=== PATIENT | male | born 1960 | race Caucasian/White ===

== ENCOUNTER 2017-01-03 03:25 | Observation (INO) | payer MEDICAID, OTHER ==
[2017-01-03 03:54] LABS: % IMMATURE GRANULYOCYTES 0.3 % (0.0-1.1); ABSOLUTE IMMATURE GRANULOCYTES 0.01 10^3/uL (0.00-0.10); ADD DIFF? NO; ADD MORPH? NO; ADD SCAN? NO; ATYPICAL LYMPHOCYTE FLAG 40 (0-99); FRAGMENT RBC FLAG 0 (0-99); HEMATOCRIT 26.4 % (40.0-51.0); HEMOGLOBIN 8.3 g/dL (13.7-17.5); LEFT SHIFT FLG 0 (0-99); LIPEMIA HEMOLYSIS FLAG 80 (0-99); MEAN CELL HEMOGLOBIN 26.6 pg (27.9-34.1); MEAN CELL HEMOGLOBIN CONCENTR. 31.4 g/dL (32.4-36.7); MEAN CELL VOLUME 84.6 fL (81.5-99.8); PLATELET CLUMPS FLAG 20 (0-99); PLATELET COUNT 104 10^3/uL (150-400); RED BLOOD CELL COUNT 3.12 10^6/uL (4.40-6.38); RED CELL DISTRIBUTION WIDTH 16.4 % (11.5-15.2)
[2017-01-03 03:57] LABS: INR 1.37 (0.83-1.16); PROTIME(PATIENT) 16.9 SEC (12.0-15.0)
--- NOTE | 2017-01-03 04:00 | EDPHY ---
H & P Stated Complaint: GIB Time Seen by Provider: 01/03/17 03:29 HPI/ROS: Chief Complaint: GI bleed HPI: 56-year-old male with a history of end-stage liver disease, cirrhosis and varices to bleed status post a tips procedure last month. Patient has had an episode of lower GI bleeding this morning. Patient states he had a large bowel movement that consisted of mostly blood at his residence. He is currently staying at [facility]. Patient states he has had similar episodes in the past which has led to his prior workups. Denies any vomiting. No dark black stools. No fainting. No chest pain shortness of breath. No abdominal pain. Does not have a history of hemorrhoids. [facility] for [facility]. ROS: 10 point Review of Systems is negative except as noted in the HPI. PMH: Type 2 diabetes, cirrhosis, gastric and esophageal varices, status post tips procedure, alcoholic liver disease Medications: Lasix 20 mg once a day Lisinopril 5 mg once a day Multi vitamin once a day Risperdal 0.5 mg once a day Spironolactone 50 mg once a day Metformin 500 mg twice a day Pantoprazole 40 mg twice a day propranolol 10 mg twice a day Lactulose 20 g 3 times a day Baclofen 5 mg three times daily p.r.n. Flexeril 5 mg three times daily p.r.n. Allergies: No known drug allergies Social History: No smoking, strong history of alcohol abuse, no recreational drug use Family History: non-contributory Physical Exam: Gen: Awake, Alert, No Distress HEENT: Nose: no rhinorrhea Eyes: PERRLA, EOMI Mouth: Moist mucosa Neck: Supple, no JVD Chest: nontender, lungs clear to auscultation Heart: S1, S2 normal, no murmur Abd: Soft, non-tender, no guarding Rectal: Adam blood Back: no CVA tenderness, no midline tenderness Ext: no edema, non-tender Skin: no rash Neuro: CN II-XII intact, Sensation grossly intact, Strength 5/5 in bilateral upper and lower extremities - Personal History Current Tetanus Diphtheria and Acellular Pertussis (TDAP): Unsure - Medical/Surgical History Hx Asthma: No Hx Chronic Respiratory Disease: No Hx Diabetes: Yes Hx Cardiac Disease: No Hx Renal Disease: Yes Hx Cirrhosis: Yes Hx Alcoholism: Yes Hx HIV/AIDS: No Hx Splenectomy or Spleen Trauma: No Other PMH: Past medical history: End-stage liver disease, HTN, AMS, depression - Social History Smoking Status: Former smoker Constitutional: Initial Vital Signs Temperature (C) 36.6 C 01/03/17 03:33 Heart Rate 64 01/03/17 03:33 Respiratory Rate 16 01/03/17 03:33 Blood Pressure 121/71 H 01/03/17 03:33 O2 Sat (%) 96 01/03/17 03:33 O2 Delivery Mode Room Air Allergies/Adverse Reactions: No Known Allergies Allergy (Unverified 01/03/17 03:29) Home Medications: Medication Instructions Recorded Baclofen 01/03/17 Flexeril 01/03/17 LACTULOSE 01/03/17 Lasix 01/03/17 Lisinopril 01/03/17 Magnesium 01/03/17 Metformin HCl 01/03/17 Pantoprazole Sodium 01/03/17 Propranolol HCl 01/03/17 Risperdal 01/03/17 Spironolactone 01/03/17 Medical Decision Making ED Course/Re-evaluation: Patient had a large bowel motion which consisted of adam blood. Patient's hemodynamics are normal. His H&H are low. I am uncertain if this is baseline. I review some of his records from [facility]. Patient had a varicocele bleed last month and is status post a TIPS procedure. He is certainly not a low risk patient. Given his H&H in his adam blood he will P requiring admission for further evaluation. I have paged the hospitalist. Case discussed with Dr. Shetty. He will admit the patient to [facility]. He would like 1 unit packed red blood cells transfused now. Would also like. Patient to start bowel now. - Data Points Laboratory Results: Laboratory Results 01/03/17 03:40 01/03/17 03:40 01/03/17 01/03/17 01/03/17 03:40 03:40 03:40 WBC RBC Hgb Hct MCV MCH MCHC RDW Plt Count MPV Neut % (Auto) Lymph % (Auto) [place] % (Auto) Eos % (Auto) Baso % (Auto) Nucleat RBC Rel Count Absolute Neuts (auto) Absolute Lymphs (auto) Absolute Monos (auto) Absolute Eos (auto) Absolute Basos (auto) Absolute Nucleated RBC Immature Gran % Immature Gran # PT 16.9 SEC H SEC (12.0-15.0) INR 1.37 H (0.83-1.16) APTT 32.0 SEC SEC (23.0-38.0) Sodium 136 mEq/L mEq/L (134-144) Potassium 4.9 mEq/L mEq/L (3.5-5.2) Chloride 105 mEq/L mEq/L (97-110) Carbon Dioxide 21 mEq/l L mEq/l (22-31) Anion Gap 10 mEq/L mEq/L (8-16) BUN 20 mg/dL mg/dL (7-23) Creatinine 1.0 mg/dL mg/dL (0.7-1.3) Estimated GFR > 60 Glucose 329 mg/dL H mg/dL (70-100) Calcium 9.2 mg/dL mg/dL (8.5-10.4) Total Bilirubin 0.9 mg/dL mg/dL (0.1-1.4) Conjugated Bilirubin 0.6 mg/dL H mg/dL (0.0-0.5) Unconjugated Bilirubin 0.3 mg/dL mg/dL (0.0-1.1) AST 106 IU/L H IU/L (17-59) ALT 69 IU/L IU/L (21-72) Alkaline Phosphatase 141 IU/L H IU/L (38-126) Total Protein 6.6 g/dL g/dL (6.3-8.2) Albumin 3.2 g/dL L g/dL (3.5-5.0) Lipase 493.0 IU/L H IU/L (23-300) Patient ABO/Rh Pending Antibody Screen Pending 01/03/17 03:40 WBC 3.45 10^3/uL L 10^3/uL (3.80-9.50) RBC 3.12 10^6/uL L 10^6/uL (4.40-6.38) Hgb 8.3 g/dL L g/dL (13.7-17.5) Hct 26.4 % L % (40.0-51.0) MCV 84.6 fL fL (81.5-99.8) MCH 26.6 pg L pg (27.9-34.1) MCHC 31.4 g/dL L g/dL (32.4-36.7) RDW 16.4 % H % (11.5-15.2) Plt Count 104 10^3/uL L 10^3/uL (150-400) MPV 12.0 fL H fL (8.7-11.7) Neut % (Auto) 53.7 % % (39.3-74.2) Lymph % (Auto) 24.3 % % (15.0-45.0) [place] % (Auto) 12.2 % % (4.5-13.0) Eos % (Auto) 8.1 % H % (0.6-7.6) Baso % (Auto) 1.4 % % (0.3-1.7) Nucleat RBC Rel Count 0.0 % % (0.0-0.2) Absolute Neuts (auto) 1.85 10^3/uL 10^3/uL (1.70-6.50) Absolute Lymphs (auto) 0.84 10^3/uL L 10^3/uL (1.00-3.00) Absolute Monos (auto) 0.42 10^3/uL 10^3/uL (0.30-0.80) Absolute Eos (auto) 0.28 10^3/uL 10^3/uL (0.03-0.40) Absolute Basos (auto) 0.05 10^3/uL 10^3/uL (0.02-0.10) Absolute Nucleated RBC 0.00 10^3/uL 10^3/uL (0-0.01) Immature Gran % 0.3 % % (0.0-1.1) Immature Gran # 0.01 10^3/uL 10^3/uL (0.00-0.10) PT INR APTT Sodium Potassium Chloride Carbon Dioxide Anion Gap BUN Creatinine Estimated GFR Glucose Calcium Total Bilirubin Conjugated Bilirubin Unconjugated Bilirubin AST ALT Alkaline Phosphatase Total Protein Albumin Lipase Patient ABO/Rh Antibody Screen Departure - Departure Disposition: [facility] Inpatient Acute Clinical Impression: Lower GI bleed Condition: Fair Referrals: ANIRUDH HYDE [Primary Care Provider] - As per Instructions
[2017-01-03 04:01] LABS: ALANINE AMINOTRANSFERASE 69 IU/L (21-72); ALBUMIN 3.2 g/dL (3.5-5.0); ALKALINE PHOSPHATASE 141 IU/L (38-126); ANION GAP 10 mEq/L (8-16); ASPARTATE AMINOTRANSFERASE 106 IU/L (17-59); BILIRUBIN,TOTAL 0.9 mg/dL (0.1-1.4); BILIRUBIN-CONJUGATED 0.6 mg/dL (0.0-0.5); BILIRUBIN-UNCONJUGATED 0.3 mg/dL (0.0-1.1); CALCIUM 9.2 mg/dL (8.5-10.4); CARBON DIOXIDE 21 mEq/l (22-31); CHLORIDE 105 mEq/L (97-110); GLOMERULAR FILTRATION RATE > 60; GLUCOSE 329 mg/dL (70-100); POTASSIUM 4.9 mEq/L (3.5-5.2); SODIUM 136 mEq/L (134-144); TOTAL PROTEIN 6.6 g/dL (6.3-8.2)
[2017-01-03] MEDS ORDERED: GOLYTELY 4000 ML BTL PO ONE ×2 (04:25→18:00)
[2017-01-03] MEDS ORDERED: ONDANSETRON DISINTEGRATING 4 MG TAB PO PRN (05:17)
[2017-01-03] MEDS ORDERED: ONDANSETRON 4 MG/2 ML VIAL IVP PRN (05:17)
--- NOTE | 2017-01-03 05:27 | PDGENHP ---
History and Physical - Chief Complaint acute hematochezia - History of Present Illness PCP: [facility] HPI: 56-year-old male presenting with acute hematochezia characterized as bright red blood per rectum with onset of symptoms on the night of this presentation (around 1:30 a.m.) with a duration of once and no reported melena. The symptoms were preceded by some associated upper abdominal discomfort interpreted as indigestion, at approximately 9:00 p.m. on the evening of presentation. The patient reports that he has not been having any recent bloody bowel movements. He has been chronically struggling with diarrhea, as his lactulose dosage has been fluctuating and he has had numerous hospitalizations up at [facility] where dosages have been adjusted. He denies any recent alcohol intake. He denies any overt left-sided abdominal pain. History Information - Allergies/Home Medication List Allergies/Adverse Reactions: No Known Allergies Allergy (Unverified 01/03/17 03:29) Home Medications: Baclofen 01/03/17 [Last Taken Unknown] Flexeril 01/03/17 [Last Taken Unknown] LACTULOSE 01/03/17 [Last Taken Unknown] Lasix 01/03/17 [Last Taken Unknown] Lisinopril 01/03/17 [Last Taken Unknown] Magnesium 01/03/17 [Last Taken Unknown] Metformin HCl 01/03/17 [Last Taken Unknown] Pantoprazole Sodium 01/03/17 [Last Taken Unknown] Propranolol HCl 01/03/17 [Last Taken Unknown] Risperdal 01/03/17 [Last Taken Unknown] Spironolactone 01/03/17 [Last Taken Unknown] I have personally reviewed and updated: family history, medical history, social history, surgical history - Past Medical History diabetes type 2 Additional medical history: Alcoholic liver disease and cirrhosis with varices. Diverticulitis status post partial colectomy. C difficile colitis, recurrent , last episode July 2016 - Surgical History Additional surgical history: TIPS procedure approximately 1 month ago. Partial colectomy. Most recent EGD and colonoscopy in September of 2016 at [facility] - Family History Additional family history: no family history of colon cancer - Social History Smoking Status: Former smoker Alcohol Use: Occasionally (when he does drink, he binges, most recent was approximately 1 month ago) Drug Use: None Additional social history: currently residing at [facility] Review of Systems ROS: 10pt was reviewed & negative except for what was stated in HPI & below Gastrointestinal: Reports: rectal bleeding, other ( indigestion) Physical Exam Temp Pulse Resp BP Pulse Ox 36.7 C 73 16 106/59 L 97 01/03/17 05:18 01/03/17 05:18 01/03/17 05:18 01/03/17 05:18 01/03/17 05:18 Constitutional: no apparent distress, appears nourished, not in pain Eyes: PERRL, anicteric sclera, EOMI Ears, Nose, Mouth, Throat: moist mucous membranes, hearing normal, ears appear normal, no oral mucosal ulcers Cardiovascular: systolic murmur ( 106 sternum), No irregularly irregular, No tachycardia, No edema Respiratory: no respiratory distress, no rales or rhonchi, clear to auscultation Gastrointestinal: normoactive bowel sounds, soft, non-tender abdomen, no palpable masses, No hepatosplenomegally, No guarding, No distension Skin: warm, other ( non jaundice) Neurologic: AAOx3, other ( no tremulousness), No facial droop Psychiatric: interacting appropriately, not anxious, not encephalopathic, thought process linear Lab Data & Imaging Review 01/03/17 03:40 01/03/17 03:40 WBC 3.45 10^3/uL (3.80-9.50) L 01/03/17 03:40 RBC 3.12 10^6/uL (4.40-6.38) L 01/03/17 03:40 Hgb 8.3 g/dL (13.7-17.5) L 01/03/17 03:40 Hct 26.4 % (40.0-51.0) L 01/03/17 03:40 MCV 84.6 fL (81.5-99.8) 01/03/17 03:40 MCH 26.6 pg (27.9-34.1) L 01/03/17 03:40 MCHC 31.4 g/dL (32.4-36.7) L 01/03/17 03:40 RDW 16.4 % (11.5-15.2) H 01/03/17 03:40 Plt Count 104 10^3/uL (150-400) L 01/03/17 03:40 MPV 12.0 fL (8.7-11.7) H 01/03/17 03:40 Neut % (Auto) 53.7 % (39.3-74.2) 01/03/17 03:40 Lymph % (Auto) 24.3 % (15.0-45.0) 01/03/17 03:40 [place] % (Auto) 12.2 % (4.5-13.0) 01/03/17 03:40 Eos % (Auto) 8.1 % (0.6-7.6) H 01/03/17 03:40 Baso % (Auto) 1.4 % (0.3-1.7) 01/03/17 03:40 Nucleat RBC Rel Count 0.0 % (0.0-0.2) 01/03/17 03:40 Absolute Neuts (auto) 1.85 10^3/uL (1.70-6.50) 01/03/17 03:40 Absolute Lymphs (auto) 0.84 10^3/uL (1.00-3.00) L 01/03/17 03:40 Absolute Monos (auto) 0.42 10^3/uL (0.30-0.80) 01/03/17 03:40 Absolute Eos (auto) 0.28 10^3/uL (0.03-0.40) 01/03/17 03:40 Absolute Basos (auto) 0.05 10^3/uL (0.02-0.10) 01/03/17 03:40 Absolute Nucleated RBC 0.00 10^3/uL (0-0.01) 01/03/17 03:40 Immature Gran % 0.3 % (0.0-1.1) 01/03/17 03:40 Immature Gran # 0.01 10^3/uL (0.00-0.10) 01/03/17 03:40 PT 16.9 SEC (12.0-15.0) H 01/03/17 03:40 INR 1.37 (0.83-1.16) H 01/03/17 03:40 APTT 32.0 SEC (23.0-38.0) 01/03/17 03:40 Sodium 136 mEq/L (134-144) 01/03/17 03:40 Potassium 4.9 mEq/L (3.5-5.2) 01/03/17 03:40 Chloride 105 mEq/L (97-110) 01/03/17 03:40 Carbon Dioxide 21 mEq/l (22-31) L 01/03/17 03:40 Anion Gap 10 mEq/L (8-16) 01/03/17 03:40 BUN 20 mg/dL (7-23) 01/03/17 03:40 Creatinine 1.0 mg/dL (0.7-1.3) 01/03/17 03:40 Estimated GFR > 60 01/03/17 03:40 Glucose 329 mg/dL (70-100) H 01/03/17 03:40 Calcium 9.2 mg/dL (8.5-10.4) 01/03/17 03:40 Total Bilirubin 0.9 mg/dL (0.1-1.4) 01/03/17 03:40 Conjugated Bilirubin 0.6 mg/dL (0.0-0.5) H 01/03/17 03:40 Unconjugated Bilirubin 0.3 mg/dL (0.0-1.1) 01/03/17 03:40 AST 106 IU/L (17-59) H 01/03/17 03:40 ALT 69 IU/L (21-72) 01/03/17 03:40 Alkaline Phosphatase 141 IU/L (38-126) H 01/03/17 03:40 Total Protein 6.6 g/dL (6.3-8.2) 01/03/17 03:40 Albumin 3.2 g/dL (3.5-5.0) L 01/03/17 03:40 Lipase 493.0 IU/L (23-300) H 01/03/17 03:40 Patient ABO/Rh A POSITIVE 01/03/17 03:40 Antibody Screen NEGATIVE 01/03/17 03:40 Crossmatch IS Only See Detail 01/03/17 03:40 Assessment & Plan Assessment: 56-year-old male presenting with acute hematochezia in the setting of cirrhosis Plan: 1. Hematochezia. Most likely etiology is acute lower gastrointestinal hemorrhage, either secondary to diverticular bleed or hemorrhoid, in the setting of mild thrombocytopenia - history of diverticulitis, currently no evidence of diverticulitis with diverticulosis with bleed is highly likely - colon prep, will contact Gastroenterology for colonoscopy in a.m. 2. Lower gastrointestinal hemorrhage. Acute, new problem this provider, further workup indicated. No evidence of hemodynamic instability, transfuse 1 unit now and repeat hemoglobin level thereafter - get colonoscopy as outlined above 3. Acute blood loss anemia. Evidenced by visible blood loss and hemoglobin level of 8.3 - outside records reviewed including 04/27/2014 emergency department report by Dr. Sun, reporting trauma workup in the setting of alcohol intoxication, hemoglobin level at that time was 10.7 4. Cirrhosis. Alcohol induced, reportedly with varices, status post recent TIPS procedure, repeat metabolic panel -will request outside records from [facility] to ascertain his most recent treatment plan Diet. Bowel prep Prophylaxis. Low risk patient, SCDs Code. Full Disposition. Anticipated discharge is 01/03 versus 01/04, pending further workup as outlined above. I have discussed patient's presentation with Dr. Jhaveri, we both agree the patient is safe for med surgeon at this time given that he is hemodynamically stable.
[2017-01-03] MEDS ORDERED: CALCIUM CARBONATE 500 MG CHEWABLE TAB PO PRN (06:05)
[2017-01-03] MEDS: FAMOTIDINE 20 MG TAB PO PRN ×3 (06:27→23:04)
[2017-01-03 07:56] LABS: % IMMATURE GRANULYOCYTES 0.3 % (0.0-1.1); ABSOLUTE IMMATURE GRANULOCYTES 0.01 10^3/uL (0.00-0.10); ADD DIFF? NO; ADD MORPH? NO; ADD SCAN? NO; ATYPICAL LYMPHOCYTE FLAG 30 (0-99); FRAGMENT RBC FLAG 0 (0-99); HEMATOCRIT 27.1 % (40.0-51.0); LEFT SHIFT FLG 0 (0-99); LIPEMIA HEMOLYSIS FLAG 80 (0-99); MEAN CELL HEMOGLOBIN 27.6 pg (27.9-34.1); MEAN CELL HEMOGLOBIN CONCENTR. 33.2 g/dL (32.4-36.7); MEAN CELL VOLUME 83.1 fL (81.5-99.8); MEAN PLATELET VOLUME 12.3 fL (8.7-11.7); PLATELET CLUMPS FLAG 0 (0-99); PLATELET COUNT 101 10^3/uL (150-400); RED BLOOD CELL COUNT 3.26 10^6/uL (4.40-6.38); RED CELL DISTRIBUTION WIDTH 15.9 % (11.5-15.2)
[2017-01-03] MEDS: PANTOPRAZOLE SODIUM 40 MG TAB PO SCH ×2 (10:43→20:01)
--- NOTE | 2017-01-03 11:17 | GCON ---
[f rep st] CONSULTATION CHIEF COMPLAINT: GI bleed. HISTORY OF PRESENT ILLNESS: This 56-year-old gentleman is not known to our hospital. He normally r [facility] care in [facility] in [place]. He has a history of alcoholism and actively drinks. He also has history of cirrhosis, with end-stage liver disease and kidney disease. By patient's rep ort, he has previously been followed at the [place]. He has had variceal bleeding in the past, a nd may have undergone variceal banding. By history, he has had a previous TIPS. He has had problem s with recurrent C difficile colitis this past fall. He had been hospitalized several times. He johnson s also had a previous sigmoid colectomy, by patient's report, in his 30s. There are unclear reasons for the sigmoid colectomy. It is suspected he may have had diverticulitis. He had recently underg one an upper endoscopy and colonoscopy in [facility], for evaluation of GI ble eding. Records are not available at this time. Patient is maintained on lactulose for elevated amm onia levels. He does have a history of diabetes colitis. He is maintained on beta jv for pres umed portal hypertension. The patient has been in [facility] in rehab. He had episodes of acute hematochezia with bright red blood. He was also having some increased retrosternal discomfort and burning. He had no nausea or vomiting. Denied any hematemesis. He has had problems with diarrhea on lactulose. The patient was admitted to the hospital for further evaluation. He was anemic, with hematocrit at 26.4, hemoglobin 8.3, platelet count was 104,000. PT was 16.9, with an INR of 1.37. BUN was 20, with a creatinine of 1.0. Liver function tests: AST was 106, ALT of 69, alk phos of 1 41, lipase was 493. Asked to see patient for evaluation of GI bleeding. PAST MEDICAL HISTORY: Diabetes mellitus; alcohol liver disease with cirrhosis, varices, and previou s TIPS; history of diverticulosis and diverticulosis, status post partial colectomy; history of C di fficile colitis. SURGICAL HISTORY: TIPS procedure about a month ago; partial colectomy 20 years ago; and recent uppe r endoscopy and colonoscopy, 2017, records not available. FAMILY HISTORY: Negative as pertains to chief complaint. SOCIAL HISTORY: Former smoker. Alcohol use, continues to drink. Does binge drink. Drank about a month ago. MEDICATIONS AT THE HALF-WAY: Baclofen, Flexeril, lactulose, Lasix, lisinopril, magnesium, metfo rmin, pantoprazole, propranolol, and Risperdal. REVIEW OF SYSTEMS: Negative for 10 systems, other than mentioned HPI. PHYSICAL EXAM: VITAL SIGNS: 119/67, heart rate of 70, respiratory rate 14, 95% on room air, 36.8. GENERAL: A gentleman lying in bed, in no acute distress. HEENT: Normocephalic, atraumatic. EOMI . NECK: Supple. No cervical adenopathy. Mucous membranes moist. LUNGS: Clear. CARDIAC: Gemma l S1, S2 without murmur. ABDOMEN: Soft. Normal bowel sounds. No hepatosplenomegaly appreciated. Nontender. EXTREMITIES: Without clubbing, cyanosis, edema. SKIN: Warm, dry, intact. PSYCH: No rmal affect. NEUROLOGIC: Nonfocal. LABORATORY: Hemoglobin 9.0, hematocrit 27.1, platelets of 101,000. PT of 16.9, INR of 1.37. Serum chemistries: Serum sodium 136, potassium 4.9, CO2 of 21, BUN of 20, creatinine 1.0, blood sugar of 329. Total bili of 0.9, AST 106, ALT of 69, alk phos 141, lipase of 493. IMPRESSION: A 56-year-old male with known alcoholic liver disease, cirrhosis, portal hypertension, status post transjugular intrahepatic portosystemic shunt, with history of probable esophageal varic es. Patient presented with acute gastrointestinal bleed. RECOMMENDATIONS: 1. Would recommend emergent upper endoscopy to exclude the possibility of brisk upper GI bleed from gastric or esophageal varices. Would recommend Doppler ultrasound to evaluate TIPS patency. 2. Serial H and H. If upper endoscopy is negative, would prep with JalynLY 2-4 L for colonoscopy later today or tomorrow morning. 3. We will also need to obtain medical records from [facility]. 4. Will follow with you. /[id number]/MODL
--- NOTE | 2017-01-03 11:32 | GPN ---
[f rep st] PROCEDURE NOTE PROCEDURE: Esophagogastroduodenoscopy with biopsy. PREOPERATIVE DIAGNOSES: Gastrointestinal bleed, history of portal hypertension and varices. Rule o ut significant upper GI source. POSTOPERATIVE DIAGNOSES: 1. Normal esophagus without evidence of varices. Large amount of food retained in the stomach. In the proximal stomach, no obvious proximal varices identified; however, the fundus and all the cardi a could not be fully visualized. 2. Diffuse gastritis, status post biopsy of the antrum and body. 3. Normal duodenum. INDICATIONS: A 56-year-old gentleman with history of alcoholic liver disease, cirrhosis with portal hypertension, prior history of varices, has had previous TIPS. He presented to the hospital with a cute GI bleed. He presents today for upper endoscopy to exclude significant upper GI source of blee ding. PHYSICAL EXAM: VITAL SIGNS: Stable. LUNGS: Clear. CARDIAC: Normal S1, S2 without murmur. PERMIT: The procedure was explained to the patient. Risks and benefits of the procedure outlined t o the patient. Informed consent was obtained. PREOPERATIVE MEDICATIONS: General anesthesia. DESCRIPTION OF PROCEDURE: The patient was placed in the left lateral decubitus position. The GIF-1 80 video scope was passed in the oropharynx under direct visualization to the proximal esophagus. E sophagus was normal. GE junction about 44 cm. No varices identified. The endoscope was passed in the stomach. There was a large amount of retained food in the stomach. Endoscope was passed in the distal stomach. There was diffuse gastritis involving the entire stomach. Erythematous folds with erosions. Endoscope was passed through the pylorus and first and second portions of the duodenum. Duodenal sweep was normal. Endoscope was brought back in the stomach. Retroflex view of the stoma ch revealed a large amount of food in the fundus and cardia. I could not fully visualize the fundus or parts of the cardia. No obvious varices were seen; however, there could have been varices hidin g under the retained food. Endoscope was un-retroflexed. Biopsies were obtained in the antrum and body for histology. Endoscope was then withdrawn. IMPRESSION: 1. Gastritis. 2. Clear liquid diet. Prep with 4 L of GoLYTELY and proceed with colonoscopy either later today or tomorrow. /[id number]/MODL
--- NOTE | 2017-01-03 13:05 | HOSPPROG ---
Hospitalist Progress Note Assessment/Plan: 56-year-old male with known alcoholic liver disease who presented with acute hematochezia in the setting of cirrhosis. Reviewed his care w Dr Booth. Today is my first encounter w the patient. Chart reviewed. *acute gi bleed, Hematochezia. s/p EGD with biopsy has diffuse gastritis, no esophageal varices noted per GI notes, if this study is negative, to get colonoscopy for further evaluation *possible lower gastrointestinal hemorrhage. to get a colonoscopy * Acute blood loss anemia transfused one unit of PRBC * Cirrhosis Alcohol induced, reportedly with varices, status post recent TIPS procedure, portal htn *hx of alcohol use quit approximately 6 months ago congratulated him on this *DVT Prophylaxis: contraindicated due to the above/ SCD's *Plan: clear liquid diet due to concern of bleeding/ explained this to Chris. Spoke with Dr Booth, his colonoscopy will be tomorrow morning or early afternoon depending on scheduling. He will need another midnight stay to monitor for any s/sx of bleeding, and will need colonoscopy for further evaluation. This will make him IP status. Subjective: Chris is frustrated about not eating/ no c/o pain. Objective: Vital Signs Temp Pulse Resp BP Pulse Ox 36.6 C 71 16 103/61 98 01/03/17 11:57 01/03/17 11:57 01/03/17 11:57 01/03/17 11:57 01/03/17 11:57 Laboratory Results 01/03/17 07:50 01/02/17 01/03/17 01/04/17 05:59 05:59 05:59 Intake Total 0 400 Output Total 0 Balance 0 400 PT 16.9 SEC (12.0-15.0) H 01/03/17 03:40 INR 1.37 (0.83-1.16) H 01/03/17 03:40 - Physical Exam Constitutional: no apparent distress, not in pain, chronically ill appearing Eyes: PERRL Ears, Nose, Mouth, Throat: hearing normal Cardiovascular: regular rate and rhythym Respiratory: no respiratory distress Gastrointestinal: normoactive bowel sounds, other (round) Skin: warm Musculoskeletal: no muscle tenderness Neurologic: AAOx3 Psychiatric: interacting appropriately, not anxious ICD10 Worksheet Patient Problems: Problems Problem Status Onset Lower GI bleed Acute
[2017-01-03] MEDS ORDERED: LACTULOSE PO SCH (16:00)
[2017-01-03] MEDS ORDERED: LACTULOSE 20 GM/30 ML UDCUP PO SCH (16:00)
[2017-01-03] MEDS: PROPRANOLOL HCL 10 MG TAB PO SCH (20:01)
[2017-01-03] MEDS ORDERED: MAGNESIUM OXIDE 400 MG TAB PO SCH (21:00)
[2017-01-04 05:26] LABS: % IMMATURE GRANULYOCYTES 0.3 % (0.0-1.1); ABSOLUTE IMMATURE GRANULOCYTES 0.01 10^3/uL (0.00-0.10); ADD DIFF? NO; ADD MORPH? NO; ADD SCAN? NO; ATYPICAL LYMPHOCYTE FLAG 20 (0-99); FRAGMENT RBC FLAG 20 (0-99); HEMATOCRIT 29.6 % (40.0-51.0); HEMOGLOBIN 9.5 g/dL (13.7-17.5); LEFT SHIFT FLG 0 (0-99); LIPEMIA HEMOLYSIS FLAG 80 (0-99); MEAN CELL HEMOGLOBIN 26.9 pg (27.9-34.1); MEAN CELL HEMOGLOBIN CONCENTR. 32.1 g/dL (32.4-36.7); MEAN CELL VOLUME 83.9 fL (81.5-99.8); MEAN PLATELET VOLUME 12.6 fL (8.7-11.7); PLATELET CLUMPS FLAG 0 (0-99); PLATELET COUNT 112 10^3/uL (150-400); RED BLOOD CELL COUNT 3.53 10^6/uL (4.40-6.38); RED CELL DISTRIBUTION WIDTH 16.3 % (11.5-15.2)
[2017-01-04 05:52] LABS: ALANINE AMINOTRANSFERASE 59 IU/L (21-72); ALKALINE PHOSPHATASE 136 IU/L (38-126); ANION GAP 9 mEq/L (8-16); ASPARTATE AMINOTRANSFERASE 54 IU/L (17-59); CALCIUM 8.9 mg/dL (8.5-10.4); CARBON DIOXIDE 22 mEq/l (22-31); CHLORIDE 108 mEq/L (97-110); CREATININE 0.9 mg/dL (0.7-1.3); GLOMERULAR FILTRATION RATE > 60; GLUCOSE 125 mg/dL (70-100); POTASSIUM 4.5 mEq/L (3.5-5.2); SODIUM 139 mEq/L (134-144); TOTAL PROTEIN 6.7 g/dL (6.3-8.2)
[2017-01-04] MEDS: PROPRANOLOL HCL 10 MG TAB PO SCH (08:34)
[2017-01-04] MEDS: PANTOPRAZOLE SODIUM 40 MG TAB PO SCH (08:34)
[2017-01-04] MEDS ORDERED: FUROSEMIDE 20 MG TAB PO SCH (09:00)
[2017-01-04] MEDS ORDERED: LISINOPRIL 5 MG TAB PO SCH (09:00)
[2017-01-04] MEDS ORDERED: risperiDONE 0.5 MG TAB PO SCH (09:00)
[2017-01-04] MEDS ORDERED: SPIRONOLACTONE 25 MG TAB PO SCH (09:00)
--- NOTE | 2017-01-04 10:30 | HOSPPROG ---
Hospitalist Progress Note Assessment/Plan: 56-year-old male with known alcoholic liver disease who presented with acute hematochezia in the setting of cirrhosis. *acute gi bleed, Hematochezia. s/p EGD with biopsy has diffuse gastritis, no esophageal varices noted per GI notes, if this study is negative, to get colonoscopy for further evaluation *possible lower gastrointestinal hemorrhage. colonoscopy today * Acute blood loss anemia transfused one unit of PRBC stable * Cirrhosis Alcohol induced, reportedly with varices, status post recent TIPS procedure, portal htn *hx of alcohol use quit approximately 6 months ago congratulated him on this *DVT Prophylaxis: contraindicated due to the above/ SCD's *Plan: colonoscopy today, if stable, will dc home later Subjective: Chris is feeling well/ no complaints. Objective: Vital Signs Temp Pulse Resp BP Pulse Ox 36.7 C 59 L 18 119/63 98 01/04/17 08:00 01/04/17 08:00 01/04/17 08:00 01/04/17 08:00 01/04/17 08:00 Laboratory Results 01/04/17 04:58 01/04/17 04:58 01/03/17 01/04/17 01/05/17 05:59 05:59 05:59 Intake Total 0 1400 Output Total 0 Balance 0 1400 PT 16.9 SEC (12.0-15.0) H 01/03/17 03:40 INR 1.37 (0.83-1.16) H 01/03/17 03:40 - Physical Exam Constitutional: no apparent distress, appears nourished Eyes: PERRL Ears, Nose, Mouth, Throat: hearing normal Cardiovascular: regular rate and rhythym Respiratory: no respiratory distress Gastrointestinal: normoactive bowel sounds, other (round) Skin: warm Neurologic: AAOx3 Psychiatric: interacting appropriately ICD10 Worksheet Patient Problems: Problems Problem Status Onset Lower GI bleed Acute
[2017-01-04 11:38] VITALS: O2SAT 99
[2017-01-04] MEDS ORDERED: PROPOFOL/EMULSION 500 MG/50 ML BOTTLE IV ONE (12:52)
[2017-01-04] MEDS ORDERED: LIDOCAINE 2% 5 ML SDV ONE (12:52)
--- NOTE | 2017-01-04 13:44 | GPN ---
[f rep st] PROCEDURE NOTE PROCEDURE PERFORMED: Colonoscopy. PREOPERATIVE DIAGNOSIS: Gastrointestinal bleed. POSTOPERATIVE DIAGNOSES: Normal colonoscopy to cecum. Surgical anastomosis at sigmoid colon. Few scattered diverticula in the left colon. No hemorrhoids. No obvious source of bleeding identified. INDICATIONS: 56-year-old male with history of alcoholic liver disease who presented to the hospital with GI bleed. He did have a drop in his hematocrit. He does have a history of portal hypertensio n and has had a previous TIPS. Also has a history of diverticulosis, status post sigmoid resection. He presented and had upper endoscopy yesterday, which showed gastritis, no obvious varices. He pr esents now for colonoscopy. PHYSICAL EXAM: VITAL SIGNS: Stable. LUNGS: Clear. CARDIAC: Normal S1, S2. PERMIT: Procedure was explained to the patient. Risks and benefits of procedure outlined to the kierra thomason. Informed consent was obtained. PREOPERATIVE MEDICATIONS: IV general anesthesia. FINDINGS/PROCEDURE: Patient placed in left lateral decubitus position. The CF-180 video colonoscop e was passed from the rectum under direct visualization to the cecum. Cecum was identified by ileoc ecal valve and appendiceal orifice. Colonic prep was good. No blood seen in the colon. Colonoscop e withdrawn with inspection of colonic segments. The cecum, ascending colon, hepatic flexure, trans verse colon, splenic flexure, descending colon were normal. In the sigmoid colon, there was evidenc e of surgical anastomosis. The colonic-colonic anastomosis was patent and healthy appearing. A few scattered diverticula were around the anastomosis; otherwise, unremarkable. The remainder of the si gmoid colon and retroflexed view of the rectum were unremarkable. There were no obvious hemorrhoids identified. Colonoscope was un-retroflexed and withdrawn. IMPRESSION: Essentially normal colonoscopy to the cecum. Surgical changes in the sigmoid colon con sistent with patient's prior sigmoid colectomy. He had a few scattered diverticula in the left colo n. He had no obvious hemorrhoids. Source of gastrointestinal bleeding was not identified. RECOMMENDATIONS: Regular diet. Would recommend capsule endoscopy as an outpatient. Thank you for allowing me to participate in the care of this patient. /[id number]/MODL
[2017-01-04 14:00] VITALS: BP 113/67; PULSE 60; RESP 16; TEMP 97.5
--- NOTE | 2017-01-04 14:54 | PDIAF ---
- Diagnosis Diagnosis: gi bleed Code Status: Full Code - Medication Management Discharge Medications: Medications to Continue on Transfer Baclofen [Baclofen 10 mg (*)] 5 mg PO Q8HRS PRN 01/03/17 [Last Taken 01/02/17 19 :07] Cyclobenzaprine [Flexeril 10 MG (*)] 5 mg PO Q8HRS PRN 01/03/17 [Last Taken 11/12] Furosemide [Lasix 20 MG (*)] 20 mg PO DAILY 01/03/17 [Last Taken 01/02/17] Herbals/Supplements -Info Only 1 ea PO DAILY 01/03/17 [Last Taken Unknown] Lactulose 30 ml PO TID 01/03/17 [Last Taken 01/02/17 20:00] Lisinopril [Zestril 5 mg (*)] 5 mg PO DAILY 01/03/17 [Last Taken 01/02/17] Magnesium Oxide [Magnesium Oxide 400 mg (*)] 400 mg PO BID 01/03/17 [Last Taken 01/02/17 20:00] Pantoprazole Sodium [Protonix 40mg (*)] 40 mg PO BID 01/03/17 [Last Taken ] Propranolol HCl [Inderal 10mg (*)] 10 mg PO BID 01/03/17 [Last Taken 01/02/17 20 :00] Spironolactone [Aldactone 25 MG (*)] 50 mg PO DAILY 01/03/17 [Last Taken ] metFORMIN HCL [Glucophage 500 mg (*)] 500 mg PO BID 01/03/17 [Last Taken 20:00] risperiDONE [Risperdal 0.5mg (*)] 0.5 mg PO DAILY 01/03/17 [Last Taken 01/02/17] Calcium Carbonate [Tums 500MG (*)] 500 mg PO TID PRN #0 tab.chew 01/04/17 [Last Taken Unknown] Discharge Medications: Refer to the Discharge Home Medication list for PRN reason. - Orders Services needed: Physical Therapy, Occupational Therapy Diet Recommendation: no restrictions on diet Diet Texture: Regular Texture Diet Additional: patient should get an OP capusle endoscopy - Labs/Radiology HCT/HGB Date: 01/07/17 (weekly till stable) - Follow Up Care Current Providers and Referrals: ANIRUDH HYDE [Primary Care Provider] - As per Instructions Donato Booth MD [Medical Doctor] -
--- NOTE | 2017-01-04 22:56 | GDS ---
[f rep st] DISCHARGE SUMMARY DISCHARGE DIAGNOSES: 1. Hematochezia. 2. Possible lower gastrointestinal bleed. 3. Acute blood loss anemia. 4. Cirrhosis. 5. History of alcohol use. CONSULTATIONS: During his stay, Dr. Donato Booth. BRIEF HISTORY: The patient is a 56-year-old gentleman who usually gets his care at [facility] in [place]. He has a history of alcoholism, and had quit drinking approximately 6 months ago. He has a history of cirrhosis, end- stage liver disease, and kidney disease. He has had variceal bleeds in the past. He also had a TIPS procedure. He recently had an upper endoscopy and colonoscopy in [facility] for evaluation of GI bleeding. Records are not obtainable on admission. He was admitted to the hospital for having some hematochezia, and was noted to be anemic. He was transfused a unit of blood. During his stay, he had an EGD with biopsy that showed gastritis. Subsequently had a colonoscopy today that was essentially normal. It is recommended that he get a capsule endoscopy as an outpatient. HOSPITAL COURSE: Per problem: 1. Acute gastrointestinal bleed, hematochezia. The EGD showed diffuse gastritis. No esophageal varices noted. 2. Possible lower gastrointestinal bleed. Colonoscopy did not show any etiology of bleeding. 3. Acute blood loss anemia, stable. He was given a unit of packed red blood cells. 4. Cirrhosis. This is alcohol induced reportedly of varices. He is status post a TIPS procedure. He also has noted portal hypertension. 5. History of alcohol use. He quit drinking 6 months ago. CONDITION AT DISCHARGE: Stable. Blood pressure is 113/57, heart rate is 59, respiratory rate is 18, O2 saturations on room air are 99%, temperature is 36.4 Celsius. MEDICATIONS AT DISCHARGE: Please see the EMR. DISCHARGE INSTRUCTIONS: 1. Recommending that he get an outpatient capsule endoscopy. 2. Labs weekly to monitor his hemoglobin and hematocrit. 3. To resume palliative care as done prior to this admission. /[id number]/MODL MTDD
== END 2017-01-04 15:59 ==
LOC: EDUNIT# → INTOOBSV 04:25 → F3E 05:29
PROVIDERS: ADMIT Internal Medicine; ATTEND Internal Medicine
PROC: 0DB68ZX Excision of Stomach, Via Natural or Artificial Opening Endoscopic, Diagnostic (ICD-10-PCS; principal; 2017-01-03 11:00)
PROC: 0DJD8ZZ Inspection of Lower Intestinal Tract, Via Natural or Artificial Opening Endoscopic (ICD-10-PCS; 2017-01-04)
DX: K92.2 Gastrointestinal hemorrhage, unspecified (principal); K29.70 Gastritis, unspecified, without bleeding; D62 Acute posthemorrhagic anemia; K72.90 Hepatic failure, unspecified without coma; K70.30 Alcoholic cirrhosis of liver without ascites; F10.20 Alcohol dependence, uncomplicated; K76.6 Portal hypertension; E11.9 Type 2 diabetes mellitus without complications; Z87.891 Personal history of nicotine dependence
CPT/HCPCS: 43239; 45378; 76705; 93975; G0378; J2704; P9016

== ENCOUNTER 2017-05-16 21:35 | Emergency (ER) | payer OTHER, MEDICAID ==
[2017-05-16 21:41] VITALS: TEMP 98.4
--- NOTE | 2017-05-16 22:17 | EDPHY ---
H & P Stated Complaint: n/V/rash HPI/ROS: HPI CHIEF COMPLAINT: Nausea, vomiting, rash HISTORY OF PRESENT ILLNESS: This patient 57-year-old male, significant past medical history for alcohol use, liver cirrhosis, tips procedure he presents emergency room from [facility] where he resides. He states that he has developed a rash that is pruritic. He denies any fever. He additionally reports that the rash has been present for 24 hours. He states diffuse. Mainly on his abdomen. Denies petechiae or purpura. Denies fever, denies chest pain shortness of breath. Denies abdominal pain. He additionally reports 4 days he has had some nausea vomiting. Nonbloody. Patient reports that he only new medication he is taking his Zofran. Past Medical History: Alcohol use, liver cirrhosis from alcohol, tips procedure , anemia blood loss, GI bleed, liver cirrhosis Past Surgical History: Tips procedure Social History: Lives at [facility] denies drugs alcohol tobacco products. Family History: Noncontributory ROS REVIEW OF SYSTEMS: A comprehensive 10 point review of systems is otherwise negative aside from elements mentioned in the history of present illness. Exam Constitutional appears well nontoxic, triage nursing summary reviewed, vital signs reviewed, awake/alert. Eyes normal conjunctivae and sclera, EOMI, PERRLA. HENT normal inspection, atraumatic, moist mucus membranes, no epistaxis, neck supple/ no meningismus, no raccoon eyes. Respiratory clear to auscultation bilaterally, normal breath sounds, no respiratory distress, no wheezing. Cardiovascular rate normal, regular rhythm, no murmur, no edema, distal pulses normal. Gastrointestinal soft, non-tender, no rebound, no guarding, normal bowel sounds, no distension, no pulsatile mass. Genitourinary no CVA tenderness. Musculoskeletal no midline vertebral tenderness, full range of motion, no calf swelling, no tenderness of extremities, no meningismus, good pulses, neurovascularly intact. Skin no particular purpura, abdominal exam shows some mild welts to the left lower abdomen, possibly urticaria. Not jaundice, no icteric. Neurologic awake, alert and oriented x 3, AAOx3, moves all 4 extremities equally, motor intact, sensory intact, CN II-XII intact, normal cerebellar, normal vision, normal speech. Psychiatric normal mood/affect. Heme/Lymph/Immune no lymphadenopathy. Differential Diagnosis: Includes but is not limited to allergic reaction, worsening liver disease, hyperbilirubinemia, medication reaction Medical Decision Making: Plan for this patient IV establishment IV fluid bolus , Phenergan for nausea, check basic blood work, Benadryl and prednisone for itching. Re-evaluate. Re-evaluation: 1232AM: I did re-evaluate this patient this time he is eating and drinking in the room. He states he feels better after Benadryl. He appears well nontoxic no acute distress. I did review his blood work is blood work is consistent with cirrhosis. His lab values are not much different than where they normally are. He denies fever, denies abdominal pain. He is not jaundiced is no icteric. Feels better after IV fluids and nausea med. He would like to go back to his nursing facility. He is requesting more to eat and drink. He had Markos crackers and multiple juice. No evidence of severe allergic reaction. No evidence of cholangitis. Abdomen soft nontender. No vomiting. Eating. Source: Patient - Medical/Surgical History Hx Asthma: No Hx Chronic Respiratory Disease: No Hx Diabetes: Yes Hx Cardiac Disease: No Hx Renal Disease: Yes Hx Cirrhosis: Yes Hx Alcoholism: Yes Hx HIV/AIDS: No Hx Splenectomy or Spleen Trauma: No Other PMH: Past medical history: End-stage liver disease, HTN, AMS, depression, C-diff - Social History Smoking Status: Former smoker Constitutional: Initial Vital Signs Temperature (C) 36.9 C 05/16/17 21:40 Heart Rate 74 05/16/17 21:40 Respiratory Rate 18 05/16/17 21:40 Blood Pressure 160/86 H 05/16/17 21:40 O2 Sat (%) 94 05/16/17 21:40 O2 Delivery Mode Room Air Allergies/Adverse Reactions: No Known Allergies Allergy (Unverified 01/03/17 03:29) Home Medications: Medication Instructions Recorded Baclofen [Baclofen 10 mg (*)] 5 mg PO Q8HRS PRN 01/03/17 Cyclobenzaprine [Flexeril 10 MG 5 mg PO Q8HRS PRN 01/03/17 (*)] Furosemide [Lasix 20 MG (*)] 20 mg PO DAILY 01/03/17 Herbals/Supplements -Info Only 1 ea PO DAILY 01/03/17 Lactulose 30 ml PO TID 01/03/17 Lisinopril [Zestril 5 mg (*)] 5 mg PO DAILY 01/03/17 Magnesium Oxide [Magnesium Oxide 400 mg PO BID 01/03/17 400 mg (*)] Pantoprazole Sodium [Protonix 40mg 40 mg PO BID 01/03/17 (*)] Propranolol HCl [Inderal 10mg (*)] 10 mg PO BID 01/03/17 Spironolactone [Aldactone 25 MG 50 mg PO DAILY 01/03/17 (*)] metFORMIN HCL [Glucophage 500 mg 500 mg PO BID 01/03/17 (*)] risperiDONE [Risperdal 0.5mg (*)] 0.5 mg PO DAILY 01/03/17 Calcium Carbonate [Tums 500MG (*)] 500 mg PO TID PRN #0 tab.chew 01/04/17 Medical Decision Making - Data Points Laboratory Results: Laboratory Results 05/16/17 23:25 05/16/17 23:25 05/16/17 05/16/17 23:25 23:25 WBC 2.73 10^3/uL L 10^3/uL (3.80-9.50) RBC 4.51 10^6/uL 10^6/uL (4.40-6.38) Hgb 13.9 g/dL g/dL (13.7-17.5) Hct 39.7 % L % (40.0-51.0) MCV 88.0 fL fL (81.5-99.8) MCH 30.8 pg pg (27.9-34.1) MCHC 35.0 g/dL g/dL (32.4-36.7) RDW 15.8 % H % (11.5-15.2) Plt Count 55 10^3/uL L 10^3/uL (150-400) MPV 10.5 fL fL (8.7-11.7) Neut % (Auto) 56.7 % % (39.3-74.2) Lymph % (Auto) 24.9 % % (15.0-45.0) [place] % (Auto) 12.1 % % (4.5-13.0) Eos % (Auto) 4.8 % % (0.6-7.6) Baso % (Auto) 1.1 % % (0.3-1.7) Nucleat RBC Rel Count 0.0 % % (0.0-0.2) Absolute Neuts (auto) 1.55 10^3/uL L 10^3/uL (1.70-6.50) Absolute Lymphs (auto) 0.68 10^3/uL L 10^3/uL (1.00-3.00) Absolute Monos (auto) 0.33 10^3/uL 10^3/uL (0.30-0.80) Absolute Eos (auto) 0.13 10^3/uL 10^3/uL (0.03-0.40) Absolute Basos (auto) 0.03 10^3/uL 10^3/uL (0.02-0.10) Absolute Nucleated RBC 0.00 10^3/uL 10^3/uL (0-0.01) Immature Gran % 0.4 % % (0.0-1.1) Immature Gran # 0.01 10^3/uL 10^3/uL (0.00-0.10) Sodium 132 mEq/L L mEq/L (134-144) Potassium 3.9 mEq/L mEq/L (3.5-5.2) Chloride 88 mEq/L L mEq/L (97-110) Carbon Dioxide 27 mEq/l mEq/l (22-31) Anion Gap 17 mEq/L H mEq/L (8-16) BUN 10 mg/dL mg/dL (7-23) Creatinine 1.0 mg/dL mg/dL (0.7-1.3) Estimated GFR > 60 Glucose 132 mg/dL H mg/dL (70-100) Calcium 8.8 mg/dL mg/dL (8.5-10.4) Total Bilirubin 5.4 mg/dL H mg/dL (0.1-1.4) Conjugated Bilirubin 3.8 mg/dL H mg/dL (0.0-0.5) Unconjugated Bilirubin 1.6 mg/dL H mg/dL (0.0-1.1) AST 487 IU/L H IU/L (17-59) ALT 195 IU/L H IU/L (21-72) Alkaline Phosphatase 148 IU/L H IU/L (38-126) Total Protein 6.7 g/dL g/dL (6.3-8.2) Albumin 3.6 g/dL g/dL (3.5-5.0) Lipase 202 IU/L IU/L (23-300) Medications Given: Discontinued Medications Diphenhydramine HCl (Benadryl) 25 mg PO EDNOW ONE Stop: 05/16/17 22:51 Last Admin: 05/16/17 23:22 Dose: 25 mg Sodium Chloride (Ns) 1,000 mls @ 0 mls/hr IV EDNOW ONE; Wide Open PRN Reason: Protocol Stop: 05/16/17 22:40 Last Admin: 05/16/17 23:21 Dose: 990 mls Prednisone (Prednisone) 60 mg PO EDNOW ONE Stop: 05/16/17 22:51 Last Admin: 05/16/17 23:22 Dose: 60 mg Promethazine HCl (Phenergan) 6.25 mg IVP ONCE ONE Stop: 05/16/17 22:51 Last Admin: 05/16/17 23:22 Dose: 6.25 mg Departure - Departure Disposition: Home, Routine, Self-Care Clinical Impression: Pruritus Condition: Good Instructions: Itchy Skin (ED) Additional Instructions: 1.Return to the emergency room if there is worsening symptoms questions or concerns. 2. Please take Benadryl as needed for itching. 3. If your rashes worse or you do not feel well return to the ER. Referrals: CARINE HO [Other] - As per Instructions
[2017-05-16] MEDS ORDERED: ONDANSETRON 4 MG/2 ML VIAL IVP ONE (22:39)
[2017-05-16] MEDS: NS 1,000 ML IV ONE (23:21)
[2017-05-16] MEDS: predniSONE 20 MG TAB PO ONE (23:22)
[2017-05-16] MEDS: diphenhydrAMINE 25 MG CAP PO ONE (23:22)
[2017-05-16] MEDS: PROMETHAZINE HCL 25 MG/ML INJ IVP ONE (23:22)
[2017-05-16 23:32] LABS: % IMMATURE GRANULYOCYTES 0.4 % (0.0-1.1); ABSOLUTE IMMATURE GRANULOCYTES 0.01 10^3/uL (0.00-0.10); ADD DIFF? NO; ADD MORPH? NO; ADD SCAN? NO; ATYPICAL LYMPHOCYTE FLAG 0 (0-99); FRAGMENT RBC FLAG 0 (0-99); HEMATOCRIT 39.7 % (40.0-51.0); HEMOGLOBIN 13.9 g/dL (13.7-17.5); LEFT SHIFT FLG 0 (0-99); LIPEMIA HEMOLYSIS FLAG 90 (0-99); MEAN CELL HEMOGLOBIN 30.8 pg (27.9-34.1); MEAN PLATELET VOLUME 10.5 fL (8.7-11.7); PLATELET CLUMPS FLAG 0 (0-99); PLATELET COUNT 55 10^3/uL (150-400); RED BLOOD CELL COUNT 4.51 10^6/uL (4.40-6.38); RED CELL DISTRIBUTION WIDTH 15.8 % (11.5-15.2)
[2017-05-17 00:11] LABS: ALANINE AMINOTRANSFERASE 195 IU/L (21-72); ALBUMIN 3.6 g/dL (3.5-5.0); ALKALINE PHOSPHATASE 148 IU/L (38-126); ANION GAP 17 mEq/L (8-16); ASPARTATE AMINOTRANSFERASE 487 IU/L (17-59); BILIRUBIN,TOTAL 5.4 mg/dL (0.1-1.4); BILIRUBIN-CONJUGATED 3.8 mg/dL (0.0-0.5); BILIRUBIN-UNCONJUGATED 1.6 mg/dL (0.0-1.1); CALCIUM 8.8 mg/dL (8.5-10.4); CARBON DIOXIDE 27 mEq/l (22-31); CHLORIDE 88 mEq/L (97-110); GLOMERULAR FILTRATION RATE > 60; GLUCOSE 132 mg/dL (70-100); POTASSIUM 3.9 mEq/L (3.5-5.2); SODIUM 132 mEq/L (134-144); TOTAL PROTEIN 6.7 g/dL (6.3-8.2)
[2017-05-17 00:47] VITALS: BP 145/89; PULSE 79; RESP 16; O2SAT 98
== END 2017-05-17 00:46 | disposition home or self-care (01) ==
LOC: EDUNIT#
DX: L29.9 Pruritus, unspecified (principal); E11.9 Type 2 diabetes mellitus without complications; I10 Essential (primary) hypertension; E86.9 Volume depletion, unspecified; Z79.84 Long term (current) use of oral hypoglycemic drugs; Z87.891 Personal history of nicotine dependence
CPT/HCPCS: 96361; 96374; 99284; J2550

== ENCOUNTER 2017-06-22 08:07 | Emergency (ER) | payer OTHER, MEDICAID ==
[2017-06-22] MEDS ORDERED: NS 1,000 ML IV ONE (08:24)
[2017-06-22] MEDS ORDERED: LORazepam 2 MG/ML INJ IVP ONE ×2 (08:24→09:10)
--- NOTE | 2017-06-22 08:28 | EDPHY ---
H & P Stated Complaint: detox-in [facility] rehab-c/o dry heaves Time Seen by Provider: 06/22/17 08:24 HPI/ROS: CHIEF COMPLAINT: Alcohol withdrawal, dry heaves HISTORY OF PRESENT ILLNESS: This patient is a 57 year old male with history of alcoholism and cirrhosis arriving via EMS from [facility] complaining of dry heaves, shaking, and hot and cold flashes onset yesterday evening. He states these symptoms had been worsening all night. He is currently in an alcohol rehabilitation program at [facility], but started drinking again one month ago. He has been told he will be discharged from the program on Tuesday. His last drink was yesterday evening, and he feels he is currently withdrawing. He denies any abdominal pain. He has had a cough recently, but denies any runny nose, sore throat, or other cold symptoms. He denies chest pain, shortness of breath, fever, diarrhea , urinary complaints, or other associated symptoms. REVIEW OF SYSTEMS: A 10 point review of systems was performed and is negative with the exception of the elements mentioned in the history of present illness. - Personal History Current Tetanus/Diphtheria Vaccine: Yes Current Tetanus Diphtheria and Acellular Pertussis (TDAP): Yes Tetanus Vaccine Date: < 10 years - Medical/Surgical History PMH: 1. Alcoholic cirrhosis, stage 4 liver disease 2. Hypertension 3. Type II diabetes mellitus 4. Diverticulitis s/p partial colectomy 5. TIPS procedure Hx Asthma: No Hx Chronic Respiratory Disease: No Hx Diabetes: Yes Hx Cardiac Disease: No Hx Renal Disease: Yes Hx Cirrhosis: Yes Hx Alcoholism: Yes Hx HIV/AIDS: No Hx Splenectomy or Spleen Trauma: No Other PMH: Past medical history: End-stage liver disease, HTN, depression, C- diff - Social History Smoking Status: Former smoker Additional Social History: Former smoker. History of alcohol abuse. Occasional marijuana use. Currently residing at [facility]. - Physical Exam Exam: General Appearance: Alert, tremulous Eyes: Pupils equal and round, no conjunctival pallor or injection ENT, Mouth: Mucous membranes moist Neck: Normal inspection Respiratory: Lungs are clear to auscultation Cardiovascular: Regular tachycardia Gastrointestinal: Abdomen is soft and non-tender Neurological: A&O, nonfocal exam Skin: Warm and dry, no rash Extremities: Nontender, no pedal edema Psychiatric: Mood and affect normal Constitutional: Initial Vital Signs Temperature (C) 36.8 C 06/22/17 08:07 Heart Rate 122 H 06/22/17 08:07 Respiratory Rate 22 H 06/22/17 08:07 Blood Pressure 166/101 H 06/22/17 08:07 O2 Sat (%) 93 06/22/17 08:07 O2 Delivery Mode Room Air Allergies/Adverse Reactions: No Known Allergies Allergy (Verified 06/22/17 08:14) Home Medications: Medication Instructions Recorded Baclofen [Baclofen 10 mg (*)] 5 mg PO Q8HRS PRN 01/03/17 Cyclobenzaprine [Flexeril 10 MG 5 mg PO Q8HRS PRN 01/03/17 (*)] Furosemide [Lasix 20 MG (*)] 20 mg PO DAILY 01/03/17 Herbals/Supplements -Info Only 1 ea PO DAILY 01/03/17 Lactulose 30 ml PO TID 01/03/17 Lisinopril [Zestril 5 mg (*)] 5 mg PO DAILY 01/03/17 Magnesium Oxide [Magnesium Oxide 400 mg PO BID 01/03/17 400 mg (*)] Pantoprazole Sodium [Protonix 40mg 40 mg PO BID 01/03/17 (*)] Propranolol HCl [Inderal 10mg (*)] 10 mg PO BID 01/03/17 Spironolactone [Aldactone 25 MG 50 mg PO DAILY 01/03/17 (*)] metFORMIN HCL [Glucophage 500 mg 500 mg PO BID 01/03/17 (*)] risperiDONE [Risperdal 0.5mg (*)] 0.5 mg PO DAILY 01/03/17 Calcium Carbonate [Tums 500MG (*)] 500 mg PO TID PRN #0 tab.chew 01/04/17 chlordiazePOXIDE [Librium 25 mg 25 mg PO TID PRN #10 cap 06/22/17 (*)] Medical Decision Making ED Course/Re-evaluation: 57 y/o male presents with alcohol withdrawal. On exam, he is tremulous and tachycardic. IV established. Plan for labs including CBC, BMP, liver, and lipase. Plan to administer 1mg IV Ativan and 1L IV NS for symptom relief. The patients BGL is elevated today at 254. He does have history of Type II diabetes mellitus, and is prescribed Metformin. 09:10 Reassessed. The patient is feeling better, and his nausea has resolved. He continues to be tremulous. Plan to administer an additional 1mg IV Ativan. 1015pm: Reassessed patient. His symptoms have improved substantially. Plan to discharge back to [facility] in good condition with a prescription for Librium for alcohol withdrawal symptoms. Follow up and return precautions discussed. The patient is comfortable with this plan. Differential Diagnosis: Differential diagnosis includes though not limited to seizure, hypoglycemia, alcoholic ketoacidosis, delirium tremens. - Data Points Laboratory Results: Laboratory Results 06/22/17 08:29 06/22/17 08:29 Medications Given: Discontinued Medications Chlordiazepoxide HCl (Librium) 25 mg PO EDNOW ONE Stop: 06/22/17 10:51 Last Admin: 06/22/17 11:00 Dose: 25 mg Sodium Chloride (Ns) 1,000 mls @ 0 mls/hr IV EDNOW ONE; Wide Open PRN Reason: Protocol Stop: 06/22/17 08:25 Last Admin: 06/22/17 08:29 Dose: 1,000 mls Lorazepam (Ativan Injection) 1 mg IVP EDNOW ONE Stop: 06/22/17 08:25 Last Admin: 06/22/17 08:38 Dose: 1 mg Lorazepam (Ativan Injection) 1 mg IVP EDNOW ONE Stop: 06/22/17 09:11 Last Admin: 06/22/17 09:25 Dose: 1 mg Departure - Departure Disposition: Home, Routine, Self-Care Clinical Impression: Alcohol withdrawal Qualifiers: Complication of substance-induced condition: uncomplicated Qualified Code(s): F10.230 - Alcohol dependence with withdrawal, uncomplicated Condition: Good Instructions: Alcohol Withdrawal (ED) Additional Instructions: 1. Follow up with your primary care provider for continued evaluation of symptoms. 2. Return to the emergency department for fever, vomiting, confusion, headache, abdominal pain or other worsening of condition 3. Take Librium as prescribed as needed for alcohol withdrawal. Referrals: CARINE HO [Other] - As per Instructions Prescriptions: chlordiazePOXIDE [Librium 25 mg (*)] 25 mg PO TID PRN #10 cap PRN Reason: Alcohol withdrawal Report Scribed for: Ingris Trevino Report Scribed by: Bettie Garg Date of Report: 06/22/17 Time of Report: 08:35 Physician Review and Approval Statement: 06/22/17 08:35 Portions of this note were transcribed by a biomedical service engineer. I personally performed a history, physical exam, medical decision making, and confirmed accuracy of information the transcribed note.
[2017-06-22 08:39] LABS: % IMMATURE GRANULYOCYTES 0.3 % (0.0-1.1); ABSOLUTE IMMATURE GRANULOCYTES 0.01 10^3/uL (0.00-0.10); ADD DIFF? NO; ADD MORPH? NO; ADD SCAN? NO; ATYPICAL LYMPHOCYTE FLAG 0 (0-99); FRAGMENT RBC FLAG 0 (0-99); HEMOGLOBIN 14.3 g/dL (13.7-17.5); LEFT SHIFT FLG 0 (0-99); LIPEMIA HEMOLYSIS FLAG 90 (0-99); MEAN CELL HEMOGLOBIN 31.6 pg (27.9-34.1); MEAN CELL HEMOGLOBIN CONCENTR. 35.8 g/dL (32.4-36.7); MEAN CELL VOLUME 88.3 fL (81.5-99.8); MEAN PLATELET VOLUME 11.4 fL (8.7-11.7); PLATELET CLUMPS FLAG 10 (0-99); PLATELET COUNT 62 10^3/uL (150-400); RED BLOOD CELL COUNT 4.53 10^6/uL (4.40-6.38); RED CELL DISTRIBUTION WIDTH 13.5 % (11.5-15.2)
[2017-06-22 08:41] VITALS: RESP 16
[2017-06-22 08:55] LABS: ALANINE AMINOTRANSFERASE 81 IU/L (21-72); ALBUMIN 4.4 g/dL (3.5-5.0); ALKALINE PHOSPHATASE 145 IU/L (38-126); ANION GAP 19 mEq/L (8-16); ASPARTATE AMINOTRANSFERASE 181 IU/L (17-59); BILIRUBIN,TOTAL 1.9 mg/dL (0.1-1.4); BILIRUBIN-CONJUGATED 1.1 mg/dL (0.0-0.5); BILIRUBIN-UNCONJUGATED 0.8 mg/dL (0.0-1.1); CALCIUM 8.9 mg/dL (8.5-10.4); CARBON DIOXIDE 22 mEq/l (22-31); CHLORIDE 99 mEq/L (97-110); CREATININE 0.9 mg/dL (0.7-1.3); GLOMERULAR FILTRATION RATE > 60; GLUCOSE 254 mg/dL (70-100); POTASSIUM 4.2 mEq/L (3.5-5.2); SODIUM 140 mEq/L (134-144); TOTAL PROTEIN 7.5 g/dL (6.3-8.2)
[2017-06-22 09:26] VITALS: PULSE 101
[2017-06-22] MEDS ORDERED: chlordiazePOXIDE 25 MG CAP PO ONE (10:50)
[2017-06-22 10:51] VITALS: BP 142/74; TEMP 98.4; O2SAT 98
--- NOTE | 2017-06-22 11:07 | ASMTCMCOM ---
CM Note CM Note Notes: Patient presents to the ED with ETOH Withdrawal symptoms. Patient started drinking alcohol again about a month ago. Patient has End Stage Liver Disease. Patient and is to be discharged back to [facility] where he has been residing while in an ETOH rehab program. Patient reports he is going to be discharged on Tuesday but can return to today. This CM spoke with Autumn RED at [facility] and gave report, including that the patient will be returning with a prescription for Librium. Autumn said patient can return via any transportation method and does not require a wheelchair transport. Patient has been able to pay for a cab in the past. Date Signed: 06/22/2017 11:06 AM Electronically Signed By:Judith Garcia RN
--- NOTE | 2017-06-22 11:46 | ASMTCMCOM ---
CM Note CM Note Notes: Patient was discharged to the waiting room but returned to the dish cloth inspector asking for a cab voucher. This CM arranged a Medicaid Cab ride through [employer] ( ) (Confirmation# [id number]). Patient is in the waiting room and aware a cab will pick him up. Patient was also provided confirmation # and contact # for [employer] for future rides if needed. Date Signed: 06/22/2017 11:45 AM Electronically Signed By:Judith Garcia RN
--- NOTE | 2017-06-22 11:47 | ASDISCHSUM ---
Discharge Information Plan Status:SNF Medically Cleared to Leave: Discharge Date:06/22/2017 10:51 AM CM D/C Disposition:Alf Facility ADT D/C Disposition:Home, Routine, Self-Care Projected Discharge Date:06/22/2017 10:51 AM Transportation at D/C:Medicaid Transportation Discharge Delay Reason: Follow-Up Date:06/22/2017 10:51 AM Discharge Slot: Final Diagnosis: Placement Information Patient Contact Information Contact Name:DEWAYNE Relationship:Daughter Address: Work Phone: City:[place] Alternate Phone: State/Zip Code:[place] Email: Financial Information Financial Class: Primary Plan Desc:MEDICARE OUTPATIENT Primary Plan Number:[id number] Secondary Plan Desc:MEDICAID HEALTH FIRST [place] OP Secondary Plan Number:[id number] Assessment Information LACE LACE Comorbidities - select Answers: Diabetes without all that apply complications Moderate or severe liver disease or renal disease Emergency dept visits in Answers: 2 last 6 months Score: 7 Date Signed: 06/22/2017 11:01 AM Electronically Signed By:Judith Garcia RN [facility] Progress Note CM Note CM Note Notes: Patient presents to the ED with ETOH Withdrawal symptoms. Patient started drinking alcohol again about a month ago. Patient has End Stage Liver Disease. Patient and is to be discharged back to [facility] where he has been residing while in an ETOH rehab program. Patient reports he is going to be discharged on Tuesday but can return to today. This CM spoke with Autumn RED at [facility] and gave report, including that the patient will be returning with a prescription for Librium. Autumn said patient can return via any transportation method and does not require a wheelchair transport. Patient has been able to pay for a cab in the past. Date Signed: 06/22/2017 11:06 AM Electronically Signed By:Judith Garcia RN [facility] Progress Note CM Note CM Note Notes: Patient was discharged to the waiting room but returned to the director of physical security asking for a cab voucher. This CM arranged a Medicaid Cab ride through [employer] ( ) (Confirmation# [id number]). Patient is in the waiting room and aware a cab will pick him up. Patient was also provided confirmation # and contact # for [employer] for future rides if needed. Date Signed: 06/22/2017 11:45 AM Electronically Signed By:Judith Garcia RN Intervention Information
== END 2017-06-22 10:51 | disposition home or self-care (01) ==
LOC: EDUNIT#
DX: F10.230 Alcohol dependence with withdrawal, uncomplicated (principal); I10 Essential (primary) hypertension; E11.9 Type 2 diabetes mellitus without complications; E86.9 Volume depletion, unspecified; Z79.84 Long term (current) use of oral hypoglycemic drugs; Z87.891 Personal history of nicotine dependence
CPT/HCPCS: 96374; 96376; 99284; J2060

== ENCOUNTER 2017-06-28 07:35 | Emergency (ER) | payer OTHER, MEDICAID ==
--- NOTE | 2017-06-28 07:43 | EDPHY ---
H & P Time Seen by Provider: 06/28/17 07:40 HPI/ROS: CHIEF COMPLAINT: I do not feel right HISTORY OF PRESENT ILLNESS: According to EMS the patient was at [facility] until yesterday. [facility] [place] [facility] with a chief complaint of foot pain and not feeling right. The patient denies any other specific medical complaints. He does admit to those starting drinking again with his last drink being sometime last evening. REVIEW OF SYSTEMS: Eye: no change in vision ENT: no sore throat Cardiac: no chest pain or syncope Pulmonary: no cough or SOB Abdomen: no vomiting, no abdominal pain, still has occasional intermittent diarrhea Musculoskeletal: no back pain Skin: no rash Neuro: no headache Constitutional: no fever : no urinary symptoms A comprehensive 10 point review of systems is otherwise negative aside from elements mentioned in the history of present illness. PAST MEDICAL HISTORY: Dr. Nadine Trevino's emergency department note dated 2016 reviewed includes alcoholism, cirrhosis, hypertension, diabetes, diverticulitis, tips procedure, depression. Social history: Marijuana and alcohol, no tobacco General Appearance: Alert and conversant, cooperative. Eyes: No scleral icterus. ENT, Mouth: Normal mucous membranes. Respiratory: Normal respiratory effort, breath sounds equal, lungs are clear to auscultation. Cardiovascular: Regular rate and rhythm. Gastrointestinal: Abdomen is soft and non tender. Well-healed midline surgical incision. Neurological: Alert and oriented x3. Normally conversant. Face symmetric, normal movement and sensation in all extremities. Not tremulous and no asterixis. Skin: Warm and dry, no rashes. Musculoskeletal: No peripheral edema and no joint swelling. Psychiatric: Not agitated. Emergency Department course/MDM: Plan for screening labs including LFTs and alcohol and electrolytes. 834: Labs and vital signs reviewed. Ethanol 131. Does not appear to have acute emergent medical or surgical process. Offered detox. Patient was given 1 L IV normal saline and EKG performed for transient hypotension. Discharge blood pressure 119/69, no tachycardia. Smoking Status: Former smoker Constitutional: Initial Vital Signs Temperature (C) 36.6 C 06/28/17 07:40 Heart Rate 92 06/28/17 07:40 Respiratory Rate 16 06/28/17 07:40 Blood Pressure 141/70 H 06/28/17 07:40 O2 Sat (%) 98 06/28/17 07:40 O2 Delivery Mode Room Air Allergies/Adverse Reactions: No Known Allergies Allergy (Verified 06/22/17 08:14) Home Medications: Medication Instructions Recorded Baclofen [Baclofen 10 mg (*)] 5 mg PO Q8HRS PRN 01/03/17 Cyclobenzaprine [Flexeril 10 MG 5 mg PO Q8HRS PRN 01/03/17 (*)] Furosemide [Lasix 20 MG (*)] 20 mg PO DAILY 01/03/17 Herbals/Supplements -Info Only 1 ea PO DAILY 01/03/17 Lactulose 30 ml PO TID 01/03/17 Lisinopril [Zestril 5 mg (*)] 5 mg PO DAILY 01/03/17 Magnesium Oxide [Magnesium Oxide 400 mg PO BID 01/03/17 400 mg (*)] Pantoprazole Sodium [Protonix 40mg 40 mg PO BID 01/03/17 (*)] Propranolol HCl [Inderal 10mg (*)] 10 mg PO BID 01/03/17 Spironolactone [Aldactone 25 MG 50 mg PO DAILY 01/03/17 (*)] metFORMIN HCL [Glucophage 500 mg 500 mg PO BID 01/03/17 (*)] risperiDONE [Risperdal 0.5mg (*)] 0.5 mg PO DAILY 01/03/17 Calcium Carbonate [Tums 500MG (*)] 500 mg PO TID PRN #0 tab.chew 01/04/17 chlordiazePOXIDE [Librium 25 mg 25 mg PO TID PRN #10 cap 06/22/17 (*)] Insulin Aspart [novoLOG] 06/28/17 Voltaren Gel (*) 06/28/17 traZODONE 50MG (*) 06/28/17 Medical Decision Making - Diagnostics EKG Interpretation: 12-lead EKG interpreted by me; official reading is in trace master. My interpretation is sinus rhythm rate 76 no ischemic changes. Differential Diagnosis: Differential considered including but not limited to hepatic encephalopathy, alcohol intoxication, metabolic abnormality, cardiac problem. - Data Points Laboratory Results: Laboratory Results 06/28/17 07:55 06/28/17 07:55 06/28/17 06/28/17 07:55 07:55 WBC 4.80 10^3/uL 10^3/uL (3.80-9.50) RBC 4.61 10^6/uL 10^6/uL (4.40-6.38) Hgb 14.9 g/dL g/dL (13.7-17.5) Hct 42.0 % % (40.0-51.0) MCV 91.1 fL fL (81.5-99.8) MCH 32.3 pg pg (27.9-34.1) MCHC 35.5 g/dL g/dL (32.4-36.7) RDW 15.1 % % (11.5-15.2) Plt Count 84 10^3/uL L 10^3/uL (150-400) MPV 10.7 fL fL (8.7-11.7) Neut % (Auto) 62.7 % % (39.3-74.2) Lymph % (Auto) 20.4 % % (15.0-45.0) [place] % (Auto) 9.4 % % (4.5-13.0) Eos % (Auto) 6.5 % % (0.6-7.6) Baso % (Auto) 0.8 % % (0.3-1.7) Nucleat RBC Rel Count 0.0 % % (0.0-0.2) Absolute Neuts (auto) 3.01 10^3/uL 10^3/uL (1.70-6.50) Absolute Lymphs (auto) 0.98 10^3/uL L 10^3/uL (1.00-3.00) Absolute Monos (auto) 0.45 10^3/uL 10^3/uL (0.30-0.80) Absolute Eos (auto) 0.31 10^3/uL 10^3/uL (0.03-0.40) Absolute Basos (auto) 0.04 10^3/uL 10^3/uL (0.02-0.10) Absolute Nucleated RBC 0.00 10^3/uL 10^3/uL (0-0.01) Immature Gran % 0.2 % % (0.0-1.1) Immature Gran # 0.01 10^3/uL 10^3/uL (0.00-0.10) Sodium 141 mEq/L mEq/L (134-144) Potassium 4.8 mEq/L mEq/L (3.5-5.2) Chloride 103 mEq/L mEq/L (97-110) Carbon Dioxide 21 mEq/l L mEq/l (22-31) Anion Gap 17 mEq/L H mEq/L (8-16) BUN 19 mg/dL mg/dL (7-23) Creatinine 1.1 mg/dL mg/dL (0.7-1.3) Estimated GFR > 60 Glucose 218 mg/dL H mg/dL (70-100) Calcium 9.7 mg/dL mg/dL (8.5-10.4) Total Bilirubin 1.3 mg/dL mg/dL (0.1-1.4) Conjugated Bilirubin 0.8 mg/dL H mg/dL (0.0-0.5) Unconjugated Bilirubin 0.5 mg/dL mg/dL (0.0-1.1) AST 73 IU/L H IU/L (17-59) ALT 53 IU/L IU/L (21-72) Alkaline Phosphatase 104 IU/L IU/L (38-126) Total Protein 7.2 g/dL g/dL (6.3-8.2) Albumin 4.2 g/dL g/dL (3.5-5.0) Ethyl Alcohol 131 mg/dL H mg/dL (0-10) Medications Given: Discontinued Medications Sodium Chloride (Ns) 1,000 mls @ 0 mls/hr IV EDNOW ONE; Wide Open PRN Reason: Protocol Stop: 06/28/17 08:36 Last Admin: 06/28/17 08:40 Dose: 1,000 mls Departure - Departure Disposition: Home, Routine, Self-Care Clinical Impression: Alcohol intoxication Qualifiers: Complication of substance-induced condition: uncomplicated Qualified Code(s): F10.920 - Alcohol use, unspecified with intoxication, uncomplicated Condition: Good Instructions: Alcohol Intoxication (ED), Abuse of Alcohol (ED) Referrals: CARINE HO [Other] - As per Instructions
[2017-06-28 08:02] LABS: PLATELET COUNT 84 10^3/uL (150-400)
[2017-06-28] MEDS ORDERED: NS 1,000 ML IV ONE (08:35)
[2017-06-28 08:39] VITALS: RESP 18
--- NOTE | 2017-06-28 08:44 | CPEKG ---
Heart Rate: 76 RR Interval: 789 P-R Interval: 172 QRSD Interval: 82 QT Interval: 384 QTC Interval: 432 P [place]: 52 QRS [place]: 24 T Wave [place]: 47 EKG Severity - NORMAL ECG - EKG Impression: SINUS RHYTHM Electronically Signed By: Deon Valencia 28-Jun-2017 09:32:48
--- NOTE | 2017-06-28 08:44 | CPEKG ---
Heart Rate: 76 RR Interval: 789 P-R Interval: 172 QRSD Interval: 82 QT Interval: 384 QTC Interval: 432 P [place]: 52 QRS [place]: 24 T Wave [place]: 47 EKG Severity - NORMAL ECG - EKG Impression: SINUS RHYTHM Electronically Signed By: Deon Valencia 28-Jun-2017 09:32:48
[2017-06-28] MEDS ORDERED: CHLORDIAZEPOXIDE 25MG PREPK#6 BTL TAKEHOME ONE (11:10)
[2017-06-28 11:22] VITALS: BP 119/69; PULSE 73; TEMP 97.7; O2SAT 96
== END 2017-06-28 10:30 | disposition home or self-care (01) ==
LOC: EDUNIT#
DX: F10.920 Alcohol use, unspecified with intoxication, uncomplicated (principal); E86.9 Volume depletion, unspecified; I10 Essential (primary) hypertension; E11.9 Type 2 diabetes mellitus without complications; Z79.4 Long term (current) use of insulin; Z79.84 Long term (current) use of oral hypoglycemic drugs; Z87.891 Personal history of nicotine dependence
CPT/HCPCS: G0480